=== PATIENT | male | born 1980 | race African-American/Black ===

== ENCOUNTER 2018-08-17 11:51 | Inpatient (IN) | payer BC, OTHER ==
[2018-08-17 12:23] VITALS: BMI 26.9
--- NOTE | 2018-08-17 13:04 | HP ---
COWS - Scale Resting Pulse: 0= [place] 80 or Below Sweatin= Chills/Flushing Restless Observation: 3= Extraneous Movement Pupil Size: 1= Pupils >than Normal Bone or Joint Aches: 2= Severe Diffuse Aches Runny Nose/ Eye Tearin= Runny Nose/Eyes GI Upset > 30mins: 2= Nausea/Diarrhea Tremor Observation: 2= Slight Tremor Visible Yawning Observation: 2= >3x During Session Anxiety or Irritability: 2=Irritable/Anxious Goose Flesh Skin: 0=Smooth Skin COWS Score: 17 Admission ROS S - HPI Chief Complaint: i need help to stop usibg heroin,cocaine and marijuana Allergies/Adverse Reactions: Allergies Allergy/AdvReac Type Severity Reaction Status Date / Time shellfish derived Allergy Verified 08/17/18 13:05 History of Present Illness: this 37 years old male with heroin,cocaine,marijuana dependence,seeking detox, withdrawal symptom,never been in detox before nicotine dependence weight loss stated need help to stop using drugs Exam Limitations: No Limitations - Ebola screening Have you been sick,other than usual withdrawal symptoms: No - Review of Systems Constitutional: Chills, Loss of Appetite, Malaise, Night Sweats, Changes in sleep, Weakness, Unintentional Wgt. Loss EENT: reports: Tearing, Nose Congestion Respiratory: reports: No Symptoms reported Cardiac: reports: No Symptoms Reported GI: reports: Nausea, Vomiting, Abdominal cramping : reports: No Symptoms Reported Musculoskeletal: reports: Back Pain, Joint Pain, Muscle Pain, Joint Stiffness Integumentary: reports: Dryness Neuro: reports: Headache, Numbness Endocrine: reports: No Symptoms Reported Hematology: reports: No Symptoms Reported Psychiatric: reports: No Sypmtoms Reported, Judgement Intact, Mood/Affect Appropiate, Orientated x3, Anxious Patient History - Patient Medical History Hx Anemia: No Hx Asthma: No Hx Chronic Obstructive Pulmonary Disease (COPD): No Hx Cancer: No Hx Cardiac Disorders: No Hx Congestive Heart Failure: No Hx Hypertension: No Hx Hypercholesterolemia: No Hx Pacemaker: No HX Cerebrovascular Accident: No Hx Seizures: No Hx Dementia: No Hx Diabetes: No Hx Gastrointestinal Disorders: No Hx Liver Disease: No Hx Genitourinary Disorders: No Hx Sexually Transmitted Disorders: No Hx Renal Disease (ESRD): No Hx Thyroid Disease: No Hx Human Immunodeficiency Virus (HIV): No (last 02/02 negative) Hx Hepatitis C: No Hx Depression: No Hx Suicide Attempt: No Hx Bipolar Disorder: No Hx Schizophrenia: No Other Medical History: no suicidal,no homicidal - Patient Surgical History Past Surgical History: No - PPD History Previous Implant?: Yes Documented Results: Negative w/o proof Implanted On Prior [facility] Admission?: No PPD to be Administered?: Yes - Smoking Cessation Smoking history: Current every day smoker Have you smoked in the past 12 months: Yes Aproximately how many cigarettes per day: 4 Hx Chewing Tobacco Use: No Initiated information on smoking cessation: Yes 'Breaking Loose' booklet given: 08/17/18 - Substance & Tx. History Hx Alcohol Use: No Hx Substance Use: Yes Substance Use Type: Cocaine, Heroin, Marijuana - Substances Abused Heroin Route: Injection Frequency: Daily Amount used: 5 bags Age of first use: 20 Date of Last Use: 08/16/18 Cocaine Route: Smoking Frequency: 1-3 times last 30 days Amount used: 1-2 bags Age of first use: 25 Date of Last Use: 08/16/18 Marijuana/Hashish Route: Smoking Frequency: Daily Amount used: 1/4 Age of first use: 16 Date of Last Use: 08/16/18 Family Disease History - Family Disease History Family History: Denies Family Disease History: Other: Father ( epilepsy) Admission Physical Exam S - Vital Signs Vital Signs: Vital Signs - 24 hr 08/17/18 12:15 Temperature 97.6 F Pulse Rate 71 Respiratory 19 Rate Blood Pressure 123/76 - Physical General Appearance: Yes: Moderate Distress, Tremorous, Irritable, Sweating, Anxious HEENTM: Yes: Normal ENT Inspection, Normocephalic, RADHA, Pharynx Normal Respiratory: Yes: Lungs Clear, Normal Breath Sounds, No Respiratory Distress Neck: Yes: Within Normal Limits, Supple, Trachea in good position Breast: Yes: Within Normal Limits Cardiology: Yes: Within Normal Limits, Regular Rhythm, Regular Rate, S1, S2 Abdominal: Yes: Within Normal Limits, Normal Bowel Sounds, Soft Genitourinary: Yes: Within Normal Limits Back: Yes: Normal Inspection, Muscle Spasm Musculoskeletal: Yes: full range of Motion, Back pain, Joint Stiffness, Muscle Pain Extremities: Yes: Within Normal Limits, Normal Range of Motion, Tremors Neurological: Yes: chief informatics officer II-XII NML intact, Fully Oriented, Alert, Motor Strength 5/5 Integumentary: Yes: Dry, Track Jacobs Lymphatic: Yes: Within Normal Limits - Diagnostic (1) Opioid dependence with withdrawal Current Visit: Yes Status: Acute (2) Cocaine dependence Current Visit: Yes Status: Acute (3) Cannabis dependence Current Visit: Yes Status: Acute (4) Nicotine dependence Current Visit: Yes Status: Acute (5) Weight loss Current Visit: Yes Status: Acute Cleared for Admission S - Detox or Rehab [facility] Level of Care: Medically Managed Detox Regimen/Protocol: Methadone [facility] Breath Alcohol Content Breath Alcohol Content: 0 Urine Drug Screen - Results Drug Screen Negative: No Urine Drug Screen Results: THC-Marijuana, BEULAH-Cocaine, OPI-Opiates, FEN-Fentanyl
[2018-08-17] MEDS ORDERED: MAGNESIUM HYDROX 2400MG/30ML ORAL SUSPENSION 30 ML CUP PO PRN (13:17)
[2018-08-17] MEDS ORDERED: IBUPROFEN 400 MG TABLET (FP) PO PRN (13:17)
[2018-08-17] MEDS ORDERED: METHADONE HCL 10 MG TABLET (FOR DETOX USE ONLY) PO ONE ×2 (13:17→23:00)
[2018-08-17] MEDS ORDERED: P-EPHED 60MG/TRIPROLIDI 2.5MG TABLET PO PRN (13:17)
[2018-08-17] MEDS ORDERED: guaiFENesin/D-METHORPHAN HB 10 ML UNIT-DOSE CUPS PO PRN (13:17)
[2018-08-17] MEDS ORDERED: MAG HYDROX/AL HYDROX/SIMETH 30 ML UNIT-DOSE CUP PO PRN (13:17)
[2018-08-17] MEDS ORDERED: LOPERAMIDE HCL 2 MG CAPSULE PO PRN (13:17)
[2018-08-17] MEDS ORDERED: MENTHOL/PHENOL 1 EACH UD MM PRN (13:17)
[2018-08-17] MEDS ORDERED: MAGNESIUM CITRATE 300 ML BOTTLE PO PRN (13:17)
[2018-08-17] MEDS ORDERED: ACETAMINOPHEN 325 MG TABLET (FP) PO PRN (13:17)
[2018-08-17] MEDS: diazePAM 5 MG TABLET PO PRN ×2 (14:21→22:11)
[2018-08-17] MEDS: NICOTINE 14 MG/24 HOURS TOPICAL PATCH TD SCH (14:21)
[2018-08-17 17:38] LABS: URINE APPEARANCE CLOUDY; URINE BILIRUBIN NEGATIVE (<2.0 mg/dL); URINE COLOR AMBER; URINE GLUCOSE (UA) NEGATIVE (NEGATIVE); URINE KETONE NEGATIVE (NEGATIVE); URINE LEUK ESTERASE NEGATIVE (NEGATIVE); URINE NITRITE NEGATIVE (NEGATIVE); URINE PROTEIN NEGATIVE (NEGATIVE)
[2018-08-17] MEDS ORDERED: MELATONIN 5 MG TABLETS PO PRN (22:00)
[2018-08-17] MEDS: THIAMINE HCL 100 MG TABLET (FP) PO SCH (22:11)
[2018-08-18] MEDS ORDERED: METHADONE HCL 10 MG TABLET (FOR DETOX USE ONLY) PO ONE (10:00)
[2018-08-18] MEDS: NICOTINE 14 MG/24 HOURS TOPICAL PATCH TD SCH (10:04)
[2018-08-18] MEDS: PRENATAL VITAMINS W/ FOLIC ACID TABLET (FP) PO SCH (10:04)
[2018-08-18 10:19] LABS: HEMATOCRIT 35.7 % (35.4-49); HEMOGLOBIN 11.5 GM/dL (11.7-16.9); MCH 32.2 pg (25.7-33.7); MCHC 32.1 g/dl (32.0-35.9); MEAN CELL VOLUME 100.5 fl (80-96); MEAN PLT VOLUME 11.5 fl (7.5-11.1); PLATELET COUNT 101 K/MM3 (134-434); RBC 3.56 M/mm3 (4.00-5.60); RDW 13.5 % (11.9-15.9); WHITE BLOOD COUNT 4.6 K/mm3 (4.0-10.0)
[2018-08-18 10:44] LABS: ALBUMIN 2.9 g/dl (3.4-5.0); ALK PHOS 79 U/L (45-117); ANION GAP 7 MMOL/L (8-16); BILIRUBIN,TOTAL 0.3 mg/dL (0.2-1); BLOOD UREA NITROGEN 10 mg/dL (7-18); CALCIUM 8.9 mg/dL (8.5-10.1); CHLORIDE 109 mmol/L (98-107); CO2 26 mmol/L (21-32); CREATININE 0.9 mg/dL (0.55-1.3); GLUCOSE,RANDOM 84 mg/dL (74-106); POTASSIUM 4.1 mmol/L (3.5-5.1); SGOT/AST 23 U/L (15-37); SGPT/ALT 23 U/L (13-61); SODIUM 142 mmol/L (136-145); TOT PROT 6.2 g/dl (6.4-8.2)
--- NOTE | 2018-08-18 11:44 | PN ---
BHS COWS - Scale Resting Pulse: 0= [place] 80 or Below Sweatin= Chills/Flushing Restless Observation: 3= Extraneous Movement Pupil Size: 1= Pupils >than Normal Bone or Joint Aches: 2= Severe Diffuse Aches Runny Nose/ Eye Tearin= Runny Nose/Eyes GI Upset > 30mins: 2= Nausea/Diarrhea Tremor Observation of Outstretched Hands: 2= Slight Tremor Visible Yawning Observation: 1= 1-2x During Session Anxiety or Irritability: 2=Irritable/Anxious Goose Flesh Skin: 0=Smooth Skin COWS Score: 16 S Progress Note (SOAP) Subjective: Diarrhea, sweating, interrupted sleep Objective: 08/18/18 11:42 Last Vital Signs Temp Pulse Resp BP Pulse Ox 97.6 F 71 17 108/74 08/18/18 09:36 08/18/18 09:36 08/18/18 09:36 08/18/18 09:36 Laboratory Tests 08/17/18 08/18/18 08/18/18 14:06 07:00 07:00 WBC 4.6 RBC 3.56 L Hgb 11.5 L Hct 35.7 MCV 100.5 H MCH 32.2 MCHC 32.1 RDW 13.5 Plt Count 101 L MPV 11.5 H Sodium 142 Potassium 4.1 Chloride 109 H Carbon Dioxide 26 Anion Gap 7 L BUN 10 Creatinine 0.9 Creat Clearance w eGFR > 60 Random Glucose 84 Calcium 8.9 Total Bilirubin 0.3 AST 23 ALT 23 Alkaline Phosphatase 79 Total Protein 6.2 L Albumin 2.9 L Urine Color [place] Urine Appearance Cloudy Urine pH 5.0 Ur Specific [place] 1.029 Urine Protein Negative Urine Glucose (UA) Negative Urine Ketones Negative Urine Blood Negative Urine Nitrite Negative Urine Bilirubin Negative Urine Urobilinogen 2.0 Ur Leukocyte Esterase Negative Labs reviewed Assessment: 08/18/18 11:43 Withdrawal sx Plan: Continue detox Encouraged PO water intake
[2018-08-18] MEDS ORDERED: FLU VACCINE QUAD 60 MCG/0.5 ML (MDV 18-19) IM ONE (12:00)
[2018-08-18] MEDS: THIAMINE HCL 100 MG TABLET (FP) PO SCH (22:08)
[2018-08-19] MEDS ORDERED: METHADONE HCL 5 MG TABLET (FOR DETOX USE ONLY) PO ONE (10:00)
[2018-08-19] MEDS: PRENATAL VITAMINS W/ FOLIC ACID TABLET (FP) PO SCH (10:10)
[2018-08-19] MEDS: NICOTINE 14 MG/24 HOURS TOPICAL PATCH TD SCH (10:11)
[2018-08-19] MEDS: diazePAM 5 MG TABLET PO PRN ×2 (10:11→22:08)
--- NOTE | 2018-08-19 11:08 | EKG ---
Test Reason : Blood Pressure : / mmHG Vent. Rate : 055 BPM Atrial Rate : 055 BPM P-R Int : 156 ms QRS Dur : 082 ms QT Int : 412 ms P-R-T Axes : 045 058 050 degrees QTc Int : 394 ms SINUS BRADYCARDIA EARLY REPOLARIZATION OTHERWISE NORMAL ECG NO PREVIOUS ECGS AVAILABLE Confirmed by Davon Cancino MD ([id number]) on 08/19/2018 11:07:25 AM Referred By: MODESTA STALEY Confirmed By:Davon Cancino MD
--- NOTE | 2018-08-19 11:29 | PN ---
BHS COWS - Scale Resting Pulse: 0= [place] 80 or Below Sweatin=Flushed/Facial Moisture Restless Observation: 3= Extraneous Movement Pupil Size: 1= Pupils >than Normal Bone or Joint Aches: 2= Severe Diffuse Aches Runny Nose/ Eye Tearin= Runny Nose/Eyes GI Upset > 30mins: 0= None Tremor Observation of Outstretched Hands: 2= Slight Tremor Visible Yawning Observation: 0= None Anxiety or Irritability: 2=Irritable/Anxious Goose Flesh Skin: 0=Smooth Skin COWS Score: 14 BHS Progress Note (SOAP) Subjective: Sweating Objective: 08/19/18 11:27 Last Vital Signs Temp Pulse Resp BP Pulse Ox 97.1 F L 71 18 101/66 08/19/18 09:21 08/19/18 09:21 08/19/18 09:21 08/19/18 09:21 Laboratory Tests 08/17/18 08/18/18 08/18/18 14:06 07:00 07:00 WBC 4.6 RBC 3.56 L Hgb 11.5 L Hct 35.7 MCV 100.5 H MCH 32.2 MCHC 32.1 RDW 13.5 Plt Count 101 L MPV 11.5 H Sodium Potassium Chloride Carbon Dioxide Anion Gap BUN Creatinine Creat Clearance w eGFR Random Glucose Calcium Total Bilirubin AST ALT Alkaline Phosphatase Total Protein Albumin Urine Color [place] Urine Appearance Cloudy Urine pH 5.0 Ur Specific [place] 1.029 Urine Protein Negative Urine Glucose (UA) Negative Urine Ketones Negative Urine Blood Negative Urine Nitrite Negative Urine Bilirubin Negative Urine Urobilinogen 2.0 Ur Leukocyte Esterase Negative RPR Titer HIV 1&2 Antibody Screen Negative HIV P24 Antigen Negative 08/18/18 08/18/18 07:00 07:00 WBC RBC Hgb Hct MCV MCH MCHC RDW Plt Count MPV Sodium 142 Potassium 4.1 Chloride 109 H Carbon Dioxide 26 Anion Gap 7 L BUN 10 Creatinine 0.9 Creat Clearance w eGFR > 60 Random Glucose 84 Calcium 8.9 Total Bilirubin 0.3 AST 23 ALT 23 Alkaline Phosphatase 79 Total Protein 6.2 L Albumin 2.9 L Urine Color Urine Appearance Urine pH Ur Specific [place] Urine Protein Urine Glucose (UA) Urine Ketones Urine Blood Urine Nitrite Urine Bilirubin Urine Urobilinogen Ur Leukocyte Esterase RPR Titer Nonreactive HIV 1&2 Antibody Screen HIV P24 Antigen Labs reviewed Assessment: 08/19/18 11:28 Withdrawal sxs Plan: Continue detox
[2018-08-19] MEDS: THIAMINE HCL 100 MG TABLET (FP) PO SCH (22:08)
[2018-08-20] MEDS ORDERED: METHADONE HCL 5 MG TABLET (FOR DETOX USE ONLY) PO ONE (10:00)
[2018-08-20] MEDS: NICOTINE 14 MG/24 HOURS TOPICAL PATCH TD SCH (10:02)
[2018-08-20] MEDS: PRENATAL VITAMINS W/ FOLIC ACID TABLET (FP) PO SCH (10:02)
--- NOTE | 2018-08-20 10:39 | PN ---
BHS Progress Note (SOAP) Subjective: Bone ache, sweating Objective: 08/20/18 10:31 Last Vital Signs Temp Pulse Resp BP Pulse Ox 96.6 F L 84 18 111/76 08/20/18 09:02 08/20/18 09:02 08/20/18 09:02 08/20/18 09:02 Laboratory Tests 08/17/18 08/18/18 08/18/18 14:06 07:00 07:00 WBC 4.6 RBC 3.56 L Hgb 11.5 L Hct 35.7 MCV 100.5 H MCH 32.2 MCHC 32.1 RDW 13.5 Plt Count 101 L MPV 11.5 H Sodium Potassium Chloride Carbon Dioxide Anion Gap BUN Creatinine Creat Clearance w eGFR Random Glucose Calcium Total Bilirubin AST ALT Alkaline Phosphatase Total Protein Albumin Urine Color [place] Urine Appearance Cloudy Urine pH 5.0 Ur Specific [place] 1.029 Urine Protein Negative Urine Glucose (UA) Negative Urine Ketones Negative Urine Blood Negative Urine Nitrite Negative Urine Bilirubin Negative Urine Urobilinogen 2.0 Ur Leukocyte Esterase Negative RPR Titer HIV 1&2 Antibody Screen Negative HIV P24 Antigen Negative 08/18/18 08/18/18 07:00 07:00 WBC RBC Hgb Hct MCV MCH MCHC RDW Plt Count MPV Sodium 142 Potassium 4.1 Chloride 109 H Carbon Dioxide 26 Anion Gap 7 L BUN 10 Creatinine 0.9 Creat Clearance w eGFR > 60 Random Glucose 84 Calcium 8.9 Total Bilirubin 0.3 AST 23 ALT 23 Alkaline Phosphatase 79 Total Protein 6.2 L Albumin 2.9 L Urine Color Urine Appearance Urine pH Ur Specific [place] Urine Protein Urine Glucose (UA) Urine Ketones Urine Blood Urine Nitrite Urine Bilirubin Urine Urobilinogen Ur Leukocyte Esterase RPR Titer Nonreactive HIV 1&2 Antibody Screen HIV P24 Antigen Labs reviewed Assessment: 08/20/18 10:32 Withdrawal sxs Plan: Continue detox. Patient requesting to continue nicotine patch upon discharge ( smoked 1/2 ppd of cigarettes) and requesting eRx stating that he plans to continue abstinence. Will send eRx for nicotine transdermal patch with taper ( 14mg nicotine patch daily x 6 weeks including hospital stay then 7mg daily x 2 weeks)
[2018-08-20] MEDS: THIAMINE HCL 100 MG TABLET (FP) PO SCH (22:15)
[2018-08-21] MEDS ORDERED: METHADONE HCL 10 MG TABLET (FOR DETOX USE ONLY) PO ONE (10:00)
[2018-08-21] MEDS: PRENATAL VITAMINS W/ FOLIC ACID TABLET (FP) PO SCH (10:14)
[2018-08-21] MEDS: NICOTINE 14 MG/24 HOURS TOPICAL PATCH TD SCH (10:15)
--- NOTE | 2018-08-21 11:49 | PN ---
BHS Progress Note (SOAP) Subjective: Diarrhea, interrupted sleep Objective: 08/21/18 11:44 Last Vital Signs Temp Pulse Resp BP Pulse Ox 96.7 F L 59 L 18 109/78 08/21/18 09:05 08/21/18 09:05 08/21/18 09:05 08/21/18 09:05 Laboratory Tests 08/17/18 08/18/18 08/18/18 14:06 07:00 07:00 WBC 4.6 RBC 3.56 L Hgb 11.5 L Hct 35.7 MCV 100.5 H MCH 32.2 MCHC 32.1 RDW 13.5 Plt Count 101 L MPV 11.5 H Sodium Potassium Chloride Carbon Dioxide Anion Gap BUN Creatinine Creat Clearance w eGFR Random Glucose Calcium Total Bilirubin AST ALT Alkaline Phosphatase Total Protein Albumin Urine Color [place] Urine Appearance Cloudy Urine pH 5.0 Ur Specific [place] 1.029 Urine Protein Negative Urine Glucose (UA) Negative Urine Ketones Negative Urine Blood Negative Urine Nitrite Negative Urine Bilirubin Negative Urine Urobilinogen 2.0 Ur Leukocyte Esterase Negative RPR Titer HIV 1&2 Antibody Screen Negative HIV P24 Antigen Negative 08/18/18 08/18/18 07:00 07:00 WBC RBC Hgb Hct MCV MCH MCHC RDW Plt Count MPV Sodium 142 Potassium 4.1 Chloride 109 H Carbon Dioxide 26 Anion Gap 7 L BUN 10 Creatinine 0.9 Creat Clearance w eGFR > 60 Random Glucose 84 Calcium 8.9 Total Bilirubin 0.3 AST 23 ALT 23 Alkaline Phosphatase 79 Total Protein 6.2 L Albumin 2.9 L Urine Color Urine Appearance Urine pH Ur Specific [place] Urine Protein Urine Glucose (UA) Urine Ketones Urine Blood Urine Nitrite Urine Bilirubin Urine Urobilinogen Ur Leukocyte Esterase RPR Titer Nonreactive HIV 1&2 Antibody Screen HIV P24 Antigen Labs reviewed: plt 101 Assessment: 08/21/18 11:46 Withdrawal sxs Noted with Thrombocytopenia Plan: Continue detox Encouraged PO water hydration Thrombocytopenia, mild: asymptomatic, follow up with PCP for monitoring
[2018-08-21] MEDS: THIAMINE HCL 100 MG TABLET (FP) PO SCH (22:22)
[2018-08-22] MEDS ORDERED: METHADONE HCL 5 MG TABLET (FOR DETOX USE ONLY) PO ONE (06:00)
[2018-08-22 06:32] VITALS: BP 98/68; PULSE 56; TEMP 97.8
--- NOTE | 2018-08-22 13:20 | DS ---
[facility] Detox Discharge Summary Admission Date: 08/17/18 Discharge Date: 08/22/18 - History Present History: Cannabis Dependence, Cocaine Dependence, Opioid Dependence Pertinent Past History: Denies - Physical Exam Results Vital Signs: Vital Signs Temperature 97.8 F 08/22/18 06:31 Pulse Rate 56 L 08/22/18 06:31 Respiratory Rate 18 08/22/18 06:31 Blood Pressure 98/68 08/22/18 06:31 O2 Sat by Pulse Oximetry (%) Pertinent Admission Physical Exam Findings: Withdrawal sxs Laboratory Tests 08/17/18 08/18/18 08/18/18 14:06 07:00 07:00 WBC 4.6 RBC 3.56 L Hgb 11.5 L Hct 35.7 MCV 100.5 H MCH 32.2 MCHC 32.1 RDW 13.5 Plt Count 101 L MPV 11.5 H Sodium Potassium Chloride Carbon Dioxide Anion Gap BUN Creatinine Creat Clearance w eGFR Random Glucose Calcium Total Bilirubin AST ALT Alkaline Phosphatase Total Protein Albumin Urine Color [place] Urine Appearance Cloudy Urine pH 5.0 Ur Specific [place] 1.029 Urine Protein Negative Urine Glucose (UA) Negative Urine Ketones Negative Urine Blood Negative Urine Nitrite Negative Urine Bilirubin Negative Urine Urobilinogen 2.0 Ur Leukocyte Esterase Negative RPR Titer HIV 1&2 Antibody Screen Negative HIV P24 Antigen Negative 08/18/18 08/18/18 07:00 07:00 WBC RBC Hgb Hct MCV MCH MCHC RDW Plt Count MPV Sodium 142 Potassium 4.1 Chloride 109 H Carbon Dioxide 26 Anion Gap 7 L BUN 10 Creatinine 0.9 Creat Clearance w eGFR > 60 Random Glucose 84 Calcium 8.9 Total Bilirubin 0.3 AST 23 ALT 23 Alkaline Phosphatase 79 Total Protein 6.2 L Albumin 2.9 L Urine Color Urine Appearance Urine pH Ur Specific [place] Urine Protein Urine Glucose (UA) Urine Ketones Urine Blood Urine Nitrite Urine Bilirubin Urine Urobilinogen Ur Leukocyte Esterase RPR Titer Nonreactive HIV 1&2 Antibody Screen HIV P24 Antigen Labs reviewed - Treatment Hospital Course: Detox Protocol Followed, Detoxed Safely, Responded well, Discharged Condition Good - Medication Discharge Medications: Ambulatory Orders Nicotine [Nicotine Patch 14mg/24 hr] 1 each TD DAILY #36 patch.td24 08/20/18 Nicotine [Nicotine Patch 7 mg/24 hr] 1 each TD DAILY #14 patch.td24 08/20/18 - Diagnosis (1) Cannabis dependence Status: Chronic (2) Cocaine dependence Status: Chronic (3) Nicotine dependence Status: Chronic (4) Opioid dependence with withdrawal Status: Acute (5) Thrombocytopenia Status: Acute - AMA Did Patient Leave Against Medical Advice: No (F/U with your PCP within 1-2 weeks )
== END 2018-08-22 08:40 | disposition home or self-care (01) | DRG 773 ==
LOC: YASAS 11:51 → Y3N 13:18
PROC: HZ2ZZZZ Detoxification Services for Substance Abuse Treatment (ICD-10-PCS; principal; 2018-08-17)
DX: F11.23 Opioid dependence with withdrawal (principal); F14.20 Cocaine dependence, uncomplicated; F12.20 Cannabis dependence, uncomplicated; F17.210 Nicotine dependence, cigarettes, uncomplicated; D69.6 Thrombocytopenia, unspecified
CPT/HCPCS: 36415; 80053; 81003; 85027; 86593; 87389; 90688; 93005; 93010; G0008

== ENCOUNTER 2018-12-01 11:15 | Inpatient (IN) | payer BC ==
[2018-12-01 11:28] VITALS: BMI 25.7
--- NOTE | 2018-12-01 15:09 | HP ---
COWS - Scale Resting Pulse: 1= [place] 81-100 Sweatin= Chills/Flushing Restless Observation: 1= Difficult to Sit Still Pupil Size: 0= Normal to Room Light Bone or Joint Aches: 2= Severe Diffuse Aches Runny Nose/ Eye Tearin= Runny Nose/Eyes GI Upset > 30mins: 2= Nausea/Diarrhea Tremor Observation: 1= Tremor [place], Not Seen Yawning Observation: 1= 1-2x During Session Anxiety or Irritability: 2=Irritable/Anxious Goose Flesh Skin: 3=Piloerection COWS Score: 16 CIWA Score - Admission Criteria [facility] Guidelines: Admission for Medically Managed Detox: Requires at least one of the followin. CIWA greater than 12 2. Seizures within the past 24 hours 3. Delirium tremens within the past 24 hours 4. Hallucinations within the past 24 hours 5. Acute intervention needed for co occurring medical disorder 6. Acute intervention needed for co occurring psychiatric disorder 7. Severe withdrawal that cannot be handled at a lower level of care (continued vomiting, continued diarrhea, abnormal vital signs) requiring intravenous medication and/or fluids 8. Admission ROS [facility] Chief Complaint: WITHDRAWAL SYMPTOMS Allergies/Adverse Reactions: Allergies Allergy/AdvReac Type Severity Reaction Status Date / Time shellfish derived Allergy Verified 12/01/18 14:30 lactose AdvReac Severe diarrhea Verified 12/01/18 15:06 NKDA Allergy Uncoded 12/01/18 14:31 History of Present Illness: 38 Y.O. MAN WITH AN EXTENSIVE HISTORY OF HEROIN DEPENDENCE IS HERE SEEKING DETOX SERVICES. HE WAS LAST HERE FOR DETOX ON 08/2018. DOES NOT HAVE A SIGNIFICANT PERIOD OF ILLICIT DRUG ABSTINENCE. Exam Limitations: No Limitations - Ebola screening Have you traveled outside of the country in the last 21 days: No Have you had contact with anyone from an Ebola affected area: No Have you been sick,other than usual withdrawal symptoms: No Do you have a fever: No - Review of Systems Constitutional: Chills, Diaphoresis, Night Sweats, Changes in sleep EENT: reports: Tearing, Nose Congestion Respiratory: reports: No Symptoms reported Cardiac: reports: No Symptoms Reported GI: reports: Diarrhea, Abdominal cramping : reports: No Symptoms Reported Musculoskeletal: reports: Back Pain, Muscle Pain, Neck Pain Integumentary: reports: No Symptoms Reported Neuro: reports: No Symptoms reported Endocrine: reports: No Symptoms Reported Hematology: reports: No Symptoms Reported Psychiatric: reports: Orientated x3, Anxious Other Systems: Reviewed and Negative Patient History - Patient Medical History Hx Anemia: No Hx Asthma: Yes (as a child) Hx Chronic Obstructive Pulmonary Disease (COPD): No Hx Cancer: No Hx Cardiac Disorders: No Hx Congestive Heart Failure: No Hx Hypertension: No Hx Hypercholesterolemia: No Hx Pacemaker: No HX Cerebrovascular Accident: No Hx Seizures: No Hx Dementia: No Hx Diabetes: No Hx Gastrointestinal Disorders: No Hx Liver Disease: No Hx Genitourinary Disorders: No Hx Sexually Transmitted Disorders: No Hx Renal Disease (ESRD): No Hx Thyroid Disease: No Hx Human Immunodeficiency Virus (HIV): No (last 02/02 negative) Hx Hepatitis C: No Hx Depression: No Hx Suicide Attempt: No Hx Bipolar Disorder: No Hx Schizophrenia: No - Patient Surgical History Past Surgical History: No Hx Neurologic Surgery: No Hx Cataract Extraction: No Hx Cardiac Surgery: No Hx Lung Surgery: No Hx Breast Surgery: No Hx Breast Biopsy: No Hx Abdominal Surgery: No Hx Appendectomy: No Hx Cholecystectomy: No Hx Genitourinary Surgery: No Hx Section: No Hx Orthopedic Surgery: No Anesthesia Reaction: No - PPD History Previous Implant?: Yes Documented Results: Negative w/proof Implanted On Prior R Admission?: Yes Date: 08/19/18 Results: 0 mm PPD to be Administered?: No - Reproductive History Patient is a Female of Child Bearing Age (11 -55 yrs old): No - Smoking Cessation Smoking history: Current every day smoker Have you smoked in the past 12 months: Yes Aproximately how many cigarettes per day: 4 Hx Chewing Tobacco Use: No Initiated information on smoking cessation: Yes 'Breaking Loose' booklet given: 12/01/18 - Substance & Tx. History Hx Alcohol Use: No Substance Use Type: Heroin, Marijuana Hx Substance Use Treatment: Yes (DETOX: 08/2018) - Substances Abused Heroin Route: Injection Frequency: Daily Amount used: 10 bags Age of first use: 18 Date of Last Use: 11/30/18 Marijuana Route: Smoking Frequency: Daily Amount used: $40 Age of first use: 16 Date of Last Use: 11/29/18 Family Disease History - Family Disease History Family Disease History: Other: Father ( epilepsy) Admission Physical Exam BHS - Vital Signs Vital Signs: Vital Signs - 24 hr 12/01/18 11:19 Temperature 96.4 F L Pulse Rate 98 H Respiratory 16 Rate Blood Pressure 127/80 - Physical General Appearance: Yes: Disheveled HEENTM: Yes: Hearing grossly Normal, Normocephalic, Normal Voice Respiratory: Yes: Chest Non-Tender, Lungs Clear, Normal Breath Sounds, No Respiratory Distress, No Accessory Muscle Use Neck: Yes: No masses,lesions,Nodules Breast: Yes: Breast Exam Deferred Cardiology: Yes: Regular Rhythm, Regular Rate Abdominal: Yes: Normal Bowel Sounds, Non Tender Genitourinary: Yes: Other (NO COMPLAINTS REPORTED) Musculoskeletal: Yes: full range of Motion, Gait Steady, Pelvis Stable Extremities: Yes: Normal Capillary Refill Neurological: Yes: Normal Mood/Affect, Normal Response Integumentary: Yes: Normal Color, Dry, Warm - Diagnostic (1) Opioid dependence with withdrawal Current Visit: Yes Status: Chronic (2) Cannabis dependence Current Visit: Yes Status: Chronic (3) Nicotine dependence Current Visit: Yes Status: Chronic Cleared for Admission [facility] - Detox or Rehab [facility] Level of Care: Medically Managed Detox Regimen/Protocol: Methadone [facility] Breath Alcohol Content Breath Alcohol Content: 0 Urine Drug Screen - Results Drug Screen Negative: No Urine Drug Screen Results: THC-Marijuana, OPI-Opiates, MTD-Methadone
[2018-12-01] MEDS ORDERED: MENTHOL/PHENOL 1 EACH UD MM PRN (15:17)
[2018-12-01] MEDS ORDERED: IBUPROFEN 400 MG TABLET (FP) PO PRN (15:17)
[2018-12-01] MEDS ORDERED: hydrOXYzine PAMOATE 50 MG CAPSULE (FP) PO PRN (15:17)
[2018-12-01] MEDS ORDERED: guaiFENesin/D-METHORPHAN HB 10 ML UNIT-DOSE CUPS PO PRN (15:17)
[2018-12-01] MEDS ORDERED: LOPERAMIDE HCL 2 MG CAPSULE PO PRN (15:17)
[2018-12-01] MEDS ORDERED: MAGNESIUM CITRATE 300 ML BOTTLE PO PRN (15:17)
[2018-12-01] MEDS ORDERED: ACETAMINOPHEN 325 MG TABLET (FP) PO PRN (15:17)
[2018-12-01] MEDS ORDERED: P-EPHED 60MG/TRIPROLIDI 2.5MG TABLET PO PRN (15:17)
[2018-12-01] MEDS ORDERED: MAG HYDROX/AL HYDROX/SIMETH 30 ML UNIT-DOSE CUP PO PRN (15:17)
[2018-12-01] MEDS ORDERED: MAGNESIUM HYDROX 2400MG/30ML ORAL SUSPENSION 30 ML CUP PO PRN (15:17)
[2018-12-01] MEDS: diazePAM 5 MG TABLET PO PRN ×2 (17:06→22:09)
[2018-12-01] MEDS ORDERED: METHADONE HCL 10 MG TABLET (FOR DETOX USE ONLY) PO ONE ×2 (17:15→23:00)
[2018-12-01] MEDS ORDERED: MELATONIN 5 MG TABLETS PO PRN (22:00)
[2018-12-01] MEDS: THIAMINE HCL 100 MG TABLET (FP) PO SCH (22:09)
[2018-12-02] MEDS ORDERED: METHADONE HCL 10 MG TABLET (FOR DETOX USE ONLY) PO ONE (10:00)
[2018-12-02] MEDS: PRENATAL VITAMINS W/ FOLIC ACID TABLET (FP) PO SCH (10:13)
[2018-12-02] MEDS: NICOTINE 14 MG/24 HOURS TOPICAL PATCH TD SCH (10:13)
[2018-12-02 11:40] LABS: HEMATOCRIT 37.2 % (35.4-49); HEMOGLOBIN 12.2 GM/dL (11.7-16.9); MCH 32.6 pg (25.7-33.7); MCHC 32.8 g/dl (32.0-35.9); MEAN CELL VOLUME 99.4 fl (80-96); MEAN PLT VOLUME 11.7 fl (7.5-11.1); PLATELET COUNT 147 K/MM3 (134-434); RBC 3.74 M/mm3 (4.00-5.60); RDW 13.4 % (11.9-15.9); WHITE BLOOD COUNT 6.9 K/mm3 (4.0-10.0)
[2018-12-02 11:45] LABS: ALBUMIN 3.5 g/dl (3.4-5.0); ALK PHOS 88 U/L (45-117); ANION GAP 7 MMOL/L (8-16); BILIRUBIN,TOTAL 0.4 mg/dL (0.2-1); BLOOD UREA NITROGEN 14 mg/dL (7-18); CALCIUM 9.1 mg/dL (8.5-10.1); CHLORIDE 105 mmol/L (98-107); CO2 28 mmol/L (21-32); CREATININE 0.9 mg/dL (0.55-1.3); GLUCOSE,RANDOM 80 mg/dL (74-106); POTASSIUM 4.1 mmol/L (3.5-5.1); SGOT/AST 21 U/L (15-37); SGPT/ALT 23 U/L (13-61); SODIUM 140 mmol/L (136-145); TOT PROT 7.6 g/dl (6.4-8.2)
--- NOTE | 2018-12-02 12:19 | PN ---
BHS COWS - Scale Resting Pulse: 1= [place] 81-100 Sweatin=Flushed/Facial Moisture Restless Observation: 1= Difficult to Sit Still Pupil Size: 0= Normal to Room Light Bone or Joint Aches: 1= Mild Discomfort Runny Nose/ Eye Tearin= Nasal Congestion GI Upset > 30mins: 2= Nausea/Diarrhea Tremor Observation of Outstretched Hands: 2= Slight Tremor Visible Yawning Observation: 1= 1-2x During Session Anxiety or Irritability: 2=Irritable/Anxious Goose Flesh Skin: 0=Smooth Skin COWS Score: 13 BHS Progress Note (SOAP) Subjective: sweats shakes interrupted sleep body aches agitation anxiety Objective: 12/02/18 12:16 Vital Signs Temperature 97.7 F 12/02/18 09:23 Pulse Rate 88 12/02/18 09:23 Respiratory Rate 18 12/02/18 09:23 Blood Pressure 128/84 12/02/18 09:23 O2 Sat by Pulse Oximetry (%) Laboratory Tests 12/01/18 12/02/18 12/02/18 05:45 05:45 05:45 WBC 6.9 RBC 3.74 L Hgb 12.2 Hct 37.2 MCV 99.4 H MCH 32.6 MCHC 32.8 RDW 13.4 Plt Count 147 D MPV 11.7 H Sodium 140 Potassium 4.1 Chloride 105 Carbon Dioxide 28 Anion Gap 7 L BUN 14 Creatinine 0.9 Creat Clearance w eGFR > 60 Random Glucose 80 Calcium 9.1 Total Bilirubin 0.4 AST 21 ALT 23 Alkaline Phosphatase 88 Total Protein 7.6 Albumin 3.5 HIV 1&2 Antibody Screen Negative HIV P24 Antigen Negative aaox3 ambulating no acute distress Assessment: 12/02/18 12:16 withdrawal sx Plan: continue detox increase fluids
[2018-12-02] MEDS: THIAMINE HCL 100 MG TABLET (FP) PO SCH (22:27)
[2018-12-03] MEDS ORDERED: METHADONE HCL 5 MG TABLET (FOR DETOX USE ONLY) PO ONE (10:00)
[2018-12-03] MEDS: NICOTINE 14 MG/24 HOURS TOPICAL PATCH TD SCH (10:23)
[2018-12-03] MEDS: PRENATAL VITAMINS W/ FOLIC ACID TABLET (FP) PO SCH (10:23)
--- NOTE | 2018-12-03 13:53 | PN ---
S CIWA - CIWA Score Nausea/Vomitin-No Nausea/No Vomiting Muscle Tremors: 3 Anxiety: 3 Agitation: 3 Paroxysmal Sweats: 3 Orientation: 0-Oriented Tacttile Disturbances: 0-None Auditory Disturbances: 0-None Visual Disturbances: 0-None Headache: 0-None Present CIWA-Ar Total Score: 12 [facility] Progress Note (SOAP) Subjective: low back pain sweats interrupted sleep Objective: 12/03/18 13:52 Vital Signs Temperature 97 F L 12/03/18 11:20 Pulse Rate 86 12/03/18 11:20 Respiratory Rate 20 12/03/18 11:20 Blood Pressure 129/78 12/03/18 11:20 O2 Sat by Pulse Oximetry (%) Laboratory Tests 12/01/18 12/02/18 12/02/18 05:45 05:45 05:45 WBC 6.9 RBC 3.74 L Hgb 12.2 Hct 37.2 MCV 99.4 H MCH 32.6 MCHC 32.8 RDW 13.4 Plt Count 147 D MPV 11.7 H Sodium 140 Potassium 4.1 Chloride 105 Carbon Dioxide 28 Anion Gap 7 L BUN 14 Creatinine 0.9 Creat Clearance w eGFR > 60 Random Glucose 80 Calcium 9.1 Total Bilirubin 0.4 AST 21 ALT 23 Alkaline Phosphatase 88 Total Protein 7.6 Albumin 3.5 RPR Titer HIV 1&2 Antibody Screen Negative HIV P24 Antigen Negative 12/02/18 05:45 WBC RBC Hgb Hct MCV MCH MCHC RDW Plt Count MPV Sodium Potassium Chloride Carbon Dioxide Anion Gap BUN Creatinine Creat Clearance w eGFR Random Glucose Calcium Total Bilirubin AST ALT Alkaline Phosphatase Total Protein Albumin RPR Titer Nonreactive HIV 1&2 Antibody Screen HIV P24 Antigen aaox3 ambulating no acute distress Assessment: 12/03/18 13:52 withdrawal sx Plan: increase fluids continue detox lidocaine patch
[2018-12-03] MEDS ORDERED: LIDOCAINE 5% TOPICAL PATCH TP ONE (14:45)
[2018-12-03] MEDS: diazePAM 5 MG TABLET PO PRN (22:07)
[2018-12-03] MEDS: THIAMINE HCL 100 MG TABLET (FP) PO SCH (23:24)
[2018-12-03] MEDS: LIDOCAINE PATCH REMOVAL MC SCH (23:24)
[2018-12-04] MEDS ORDERED: METHADONE HCL 5 MG TABLET (FOR DETOX USE ONLY) PO ONE (10:00)
[2018-12-04] MEDS: NICOTINE 14 MG/24 HOURS TOPICAL PATCH TD SCH (10:10)
[2018-12-04] MEDS: PRENATAL VITAMINS W/ FOLIC ACID TABLET (FP) PO SCH (10:10)
[2018-12-04] MEDS: LIDOCAINE 5% TOPICAL PATCH TP SCH (10:10)
--- NOTE | 2018-12-04 16:12 | PN ---
[facility] Progress Note (SOAP) Subjective: Body Aches. Objective: 12/04/18 16:10 Vital Signs Temperature 98.1 F 12/04/18 13:56 Pulse Rate 76 12/04/18 13:56 Respiratory Rate 18 12/04/18 13:56 Blood Pressure 140/71 12/04/18 13:56 O2 Sat by Pulse Oximetry (%) Laboratory Tests 12/01/18 12/02/18 12/02/18 05:45 05:45 05:45 WBC 6.9 RBC 3.74 L Hgb 12.2 Hct 37.2 MCV 99.4 H MCH 32.6 MCHC 32.8 RDW 13.4 Plt Count 147 D MPV 11.7 H Sodium 140 Potassium 4.1 Chloride 105 Carbon Dioxide 28 Anion Gap 7 L BUN 14 Creatinine 0.9 Creat Clearance w eGFR > 60 Random Glucose 80 Calcium 9.1 Total Bilirubin 0.4 AST 21 ALT 23 Alkaline Phosphatase 88 Total Protein 7.6 Albumin 3.5 RPR Titer HIV 1&2 Antibody Screen Negative HIV P24 Antigen Negative 12/02/18 05:45 WBC RBC Hgb Hct MCV MCH MCHC RDW Plt Count MPV Sodium Potassium Chloride Carbon Dioxide Anion Gap BUN Creatinine Creat Clearance w eGFR Random Glucose Calcium Total Bilirubin AST ALT Alkaline Phosphatase Total Protein Albumin RPR Titer Nonreactive HIV 1&2 Antibody Screen HIV P24 Antigen LABS NOTED. Assessment: PATIENT A & O X 3, OBSERVED AMBULATING ON UNIT. IN NO ACUTE DISTRESS. 12/04/18 16:10 Vital Signs Temperature 98.1 F 12/04/18 13:56 Pulse Rate 76 12/04/18 13:56 Respiratory Rate 18 12/04/18 13:56 Blood Pressure 140/71 12/04/18 13:56 O2 Sat by Pulse Oximetry (%) Laboratory Tests 12/01/18 12/02/18 12/02/18 05:45 05:45 05:45 WBC 6.9 RBC 3.74 L Hgb 12.2 Hct 37.2 MCV 99.4 H MCH 32.6 MCHC 32.8 RDW 13.4 Plt Count 147 D MPV 11.7 H Sodium 140 Potassium 4.1 Chloride 105 Carbon Dioxide 28 Anion Gap 7 L BUN 14 Creatinine 0.9 Creat Clearance w eGFR > 60 Random Glucose 80 Calcium 9.1 Total Bilirubin 0.4 AST 21 ALT 23 Alkaline Phosphatase 88 Total Protein 7.6 Albumin 3.5 RPR Titer HIV 1&2 Antibody Screen Negative HIV P24 Antigen Negative 12/02/18 05:45 WBC RBC Hgb Hct MCV MCH MCHC RDW Plt Count MPV Sodium Potassium Chloride Carbon Dioxide Anion Gap BUN Creatinine Creat Clearance w eGFR Random Glucose Calcium Total Bilirubin AST ALT Alkaline Phosphatase Total Protein Albumin RPR Titer Nonreactive HIV 1&2 Antibody Screen HIV P24 Antigen LABS NOTED. Plan: CONTINUE DETOX.
[2018-12-04] MEDS: THIAMINE HCL 100 MG TABLET (FP) PO SCH (21:42)
[2018-12-04] MEDS: LIDOCAINE PATCH REMOVAL MC SCH (22:35)
[2018-12-05] MEDS ORDERED: METHADONE HCL 10 MG TABLET (FOR DETOX USE ONLY) PO ONE (10:00)
[2018-12-05] MEDS: PRENATAL VITAMINS W/ FOLIC ACID TABLET (FP) PO SCH (10:35)
[2018-12-05] MEDS: NICOTINE 14 MG/24 HOURS TOPICAL PATCH TD SCH (10:35)
[2018-12-05] MEDS: LIDOCAINE 5% TOPICAL PATCH TP SCH (10:36)
--- NOTE | 2018-12-05 12:06 | PN ---
[facility] Progress Note (SOAP) Subjective: anxiety Objective: 12/05/18 12:06 Vital Signs Temperature 97.0 F L 12/05/18 09:57 Pulse Rate 79 12/05/18 09:57 Respiratory Rate 16 12/05/18 09:57 Blood Pressure 123/85 12/05/18 09:57 O2 Sat by Pulse Oximetry (%) aaox3 ambulating no acute distress Assessment: 12/05/18 12:06 withdrawal sx Plan: continue detox d/c in am
[2018-12-05 21:30] VITALS: TEMP 97.9
[2018-12-05] MEDS: LIDOCAINE PATCH REMOVAL MC SCH (22:41)
[2018-12-05] MEDS: THIAMINE HCL 100 MG TABLET (FP) PO SCH (22:41)
[2018-12-06] MEDS ORDERED: METHADONE HCL 5 MG TABLET (FOR DETOX USE ONLY) PO ONE (06:00)
[2018-12-06 08:22] VITALS: BP 122/52; PULSE 71
--- NOTE | 2018-12-06 13:50 | DS ---
[facility] Detox Discharge Summary Admission Date: 12/01/18 Discharge Date: 12/06/18 - History Present History: Cocaine Dependence, Opioid Dependence Pertinent Past History: Denies significant medical hx - Physical Exam Results Vital Signs: Vital Signs Temperature 97.9 F 12/06/18 08:21 Pulse Rate 71 12/06/18 08:21 Respiratory Rate 18 12/06/18 08:21 Blood Pressure 122/52 L 12/06/18 08:21 O2 Sat by Pulse Oximetry (%) Pertinent Admission Physical Exam Findings: Withdrawal sx Laboratory Last Values WBC 6.9 K/mm3 (4.0-10.0) 12/02/18 05:45 RBC 3.74 M/mm3 (4.00-5.60) L 12/02/18 05:45 Hgb 12.2 GM/dL (11.7-16.9) 12/02/18 05:45 Hct 37.2 % (35.4-49) 12/02/18 05:45 MCV 99.4 fl (80-96) H 12/02/18 05:45 MCH 32.6 pg (25.7-33.7) 12/02/18 05:45 MCHC 32.8 g/dl (32.0-35.9) 12/02/18 05:45 RDW 13.4 % (11.9-15.9) 12/02/18 05:45 Plt Count 147 K/MM3 (134-434) D 12/02/18 05:45 MPV 11.7 fl (7.5-11.1) H 12/02/18 05:45 Sodium 140 mmol/L (136-145) 12/02/18 05:45 Potassium 4.1 mmol/L (3.5-5.1) 12/02/18 05:45 Chloride 105 mmol/L (98-107) 12/02/18 05:45 Carbon Dioxide 28 mmol/L (21-32) 12/02/18 05:45 Anion Gap 7 MMOL/L (8-16) L 12/02/18 05:45 BUN 14 mg/dL (7-18) 12/02/18 05:45 Creatinine 0.9 mg/dL (0.55-1.3) 12/02/18 05:45 Creat Clearance w eGFR > 60 (>60) 12/02/18 05:45 Random Glucose 80 mg/dL (74-106) 12/02/18 05:45 Calcium 9.1 mg/dL (8.5-10.1) 12/02/18 05:45 Total Bilirubin 0.4 mg/dL (0.2-1) 12/02/18 05:45 AST 21 U/L (15-37) 12/02/18 05:45 ALT 23 U/L (13-61) 12/02/18 05:45 Alkaline Phosphatase 88 U/L (45-117) 12/02/18 05:45 Total Protein 7.6 g/dl (6.4-8.2) 12/02/18 05:45 Albumin 3.5 g/dl (3.4-5.0) 12/02/18 05:45 RPR Titer Nonreactive (NONREACTIVE) 12/02/18 05:45 HIV 1&2 Antibody Screen Negative 12/01/18 05:45 HIV P24 Antigen Negative 12/01/18 05:45 Labs noted - Treatment Hospital Course: Detox Protocol Followed, Detoxed Safely, Responded well, Discharged Condition Good - Medication Discharge Medications: Ambulatory Orders Nicotine [Nicotine Patch 14mg/24 hr] 1 each TD DAILY #36 patch.[id number] 08/20/18 Nicotine [Nicotine Patch 7 mg/24 hr] 1 each TD DAILY #14 patch.[id number] 08/20/18 - Diagnosis (1) Cannabis dependence Status: Acute (2) Cocaine dependence Status: Acute Qualifiers: Substance use status: uncomplicated Qualified Code(s): F14.20 - Cocaine dependence, uncomplicated (3) Nicotine dependence Status: Chronic Qualifiers: Nicotine product type: cigarettes Substance use status: uncomplicated Qualified Code(s): F17.210 - Nicotine dependence, cigarettes, uncomplicated (4) Opioid dependence with withdrawal Status: Acute - AMA Did Patient Leave Against Medical Advice: No
== END 2018-12-06 08:49 | disposition home or self-care (01) | DRG 773 ==
LOC: YASAS 11:15 → Y6N 15:50
PROVIDERS: ADMIT Neuromusculoskeletal Medicine & OMM; ATTEND Neuromusculoskeletal Medicine & OMM
PROC: HZ2ZZZZ Detoxification Services for Substance Abuse Treatment (ICD-10-PCS; principal; 2018-12-01)
DX: F11.23 Opioid dependence with withdrawal (principal); F12.20 Cannabis dependence, uncomplicated; F17.210 Nicotine dependence, cigarettes, uncomplicated; Z91.011 Allergy to milk products; Z91.013 Allergy to seafood
CPT/HCPCS: 36415; 80053; 85027; 86593; 87389